=== PATIENT | female | born 1995 | race African-American/Black ===

== ENCOUNTER 2022-06-12 09:16 | Emergency (ER) | payer OTHER ==
[~2022-06-12] VITALS: Ht 175.3 cm; Wt 150.0 kg
[2022-06-12 13:25] VITALS: BP 157/102
[2022-06-12] MEDS ORDERED: CYCL-837 PO (13:40)
[2022-06-12] MEDS ORDERED: IBUP800T26 PO (13:40)
== END 2022-06-12 13:47 | disposition home or self-care (01) ==
LOC: ER 09:16
DX: S60.221A Contusion of right hand, initial encounter (principal); S80.01XA Contusion of right knee, initial encounter; V49.69XA Unspecified car occupant injured in collision with other motor vehicles in traffic accident, initial encounter; Y93.89 Activity, other specified; Y92.410 Unspecified street and highway as the place of occurrence of the external cause; Y99.8 Other external cause status
CPT/HCPCS: 73130; 73562